=== PATIENT | female | born 2000 | race Two or more races ===

== ENCOUNTER 2021-02-11 23:19 | Emergency (ER) | payer SELFPAY ==
[~2021-02-11] VITALS: Ht 152.4 cm; Wt 59.0 kg
--- NOTE | 2021-02-11 23:32 | NUR ---
pt bibra c/o vaginal bleeding. Pt aaox4 breathing evenly and unlabored. Pt is 6months . Pt denies cramping. Pt attached to monitor and pox. Md at bedside. Pt given blanket and call light within reach
--- NOTE | 2021-02-11 23:50 | NUR ---
lab at bedside
[2021-02-12 00:03] LABS: BASOPHILS % (AUTO) 0.3 % (0.0-2.0); EOSINOPHILS % (AUTO) 1.3 % (0.0-6.0); HEMATOCRIT 32 % (33-45); HEMOGLOBIN 10.6 g/dL (11.5-14.8); LYMPHOCYTES # (AUTO) 1.5 K/uL (0.8-4.8); LYMPHOCYTES % (AUTO) 16.9 % (20.0-44.0); MEAN CORPUSCULAR HGB CONC 33 g/dl (31.0-36.0); MEAN CORPUSCULAR VOLUME 89 fL (82-100); MONOCYTES # (AUTO) 0.6 K/uL (0.1-1.30); MONOCYTES % (AUTO) 6.5 % (2.0-12.0); NEUTROPHILS # (AUTO) 6.7 K/uL (1.8-8.9); PLATELET COUNT (AUTO) 276 K/uL (150-450); RED BLOOD CELL COUNT(AUTO) 3.62 MIL/uL (4.0-5.2); WHITE BLOOD COUNT (AUTO) 8.9 K/uL (4.3-11.0)
[2021-02-12 00:22] LABS: CALCIUM, SERUM 8.5 mg/dL (8.5-10.1); CREATININE 0.4 mg/dL (0.6-1.3); POTASSIUM 3.2 mmol/L (3.5-5.1)
[2021-02-12] MEDS ORDERED: AZITHROMYCIN 250 MG TABLET PO ONE (00:30)
[2021-02-12 00:35] LABS: ALBUMIN 2.8 g/dL (3.4-5.0); BILIRUBIN,DIRECT 0.1 mg/dL (0.0-0.2); BILIRUBIN,TOTAL 0.4 mg/dL (0.2-1.0); TOTAL PROTEIN, SERUM 6.7 g/dL (6.4-8.2)
[2021-02-12] MEDS ORDERED: AZITHROMYCIN 250 MG TABLET ONE (00:40)
--- NOTE | 2021-02-12 02:02 | NUR ---
Patient does not wish to proceed with medical care recommended by Dr. Dacosta. Patient given information related to possible complications, up to and including , which could occur as a result of leaving the hospital at this time. Patient verbalizes understanding of risks involved due to leaving against medical advice. Patient has signed AMA form.
[2021-02-12 02:10] VITALS: BP 102/59
== END 2021-02-12 02:02 | disposition left against medical advice (07) ==
LOC: ER 23:22
DX: O46.92 Antepartum hemorrhage, unspecified, second trimester (principal); Z88.8 Allergy status to other drugs, medicaments and biological substances; Z3A.20 20 weeks gestation of pregnancy
CPT/HCPCS: 36415; 80048-TC; 80076-TC; 84702-TC; 85025-TC; 85730-TC; 87491; 87591